=== PATIENT | male | born 1940 | race Caucasian/White ===

== ENCOUNTER 2019-07-23 06:00 | Observation (INO) | payer MEDICARE, OTHER ==
[2019-07-19 10:54] LABS: BASOPHILS # (AUTO) 0.1 (0.0-0.1); BASOPHILS % 0.9 % (0.0-1.0); EOSINOPHILS # (AUTO) 0.1 (0.0-0.4); HEMATOCRIT 41.2 % (38.2-49.6); HEMOGLOBIN 13.8 g/dL (14.0-18.0); LYMPHOCYTES % 17.6 % (18.0-39.1); MEAN CORPUSCULAR HEMOGLOBIN 32.5 pg (28-32); MEAN CORPUSCULAR HGB CONC 33.5 g/dL (31-35); MEAN CORPUSCULAR VOLUME 96.9 fL (81-99); MONOCYTES # (AUTO) 1.1 (0.2-0.8); MONOCYTES % 9.7 % (4.4-11.3); NEUTROPHILS # (AUTO) 8.2 (2.1-6.9); NEUTROPHILS % 70.4 % (38.7-80.0); PLATELET COUNT 256 x10e3/uL (140-360); RED BLOOD COUNT 4.25 x10e6/uL (4.3-5.7); RED CELL DISTRIBUTION WIDTH 12.1 % (11.7-14.4)
--- NOTE | 2019-07-19 11:15 | Diagnostic Imaging Report ---
EXAMINATION: CHEST 2 VIEWS INDICATION: Pre-operative COMPARISON: None FINDINGS: LINES/TUBES:None LUNGS:The lungs are well-inflated. No focal consolidation or pulmonary edema. PLEURA:No pleural effusion or pneumothorax. MEDIASTINUM:The cardiomediastinal silhouette appears normal in size and shape. BONES/SOFT TISSUES:No acute osseous injury. ABDOMEN:No free air under the diaphragm. Status post cholecystectomy. IMPRESSION: No focal pneumonia or pulmonary edema. Signed by: Anshul Esqueda MD on 07/19/2019 11:11 AM
[2019-07-20 08:11] LABS: CALCIUM 9.3 mg/dL (8.4-10.2); CREATININE, SERUM 1.27 mg/dL (0.72-1.25)
[~2019-07-23] VITALS: Ht 167.6 cm; Wt 105.7 kg
[~2019-07-23 06:00] MED LIST: ASPIR 8181 MG PO; BACLOFEN10 MG PO; BENAZEPRIL-HCT1 EAC2 PO; NAPROSYN500 MG PO; [UNRECOGNIZED DRUG - OTHER] TOP
--- OUTSIDE RECORDS SUMMARY | 2019-07-23 06:10 | XMS REPORT | Clinical Summary ---
Author Author [facility] Organization [facility] Address Unknown Phone Unavailable Care Team Providers Care Boat Engine Mechanic Name Role Phone Prasad Gonzalez MD PCP Allergies Comments Active Allergy Reactions Severity Noted Date Penicillins 10/02/2018 Medications End Date Status Medication Sig Dispensed Refills Start Date Active montelukast (SINGULAIR) Take 10 mg by 0 10 mg tablet mouth nightly. Active benazepril-hydrochlorothi Take 1 tablet 0 azide (LOTENSIN HCT) by mouth 20-25 mg per tablet daily. Active acetaZOLAMIDE (DIAMOX) TAKE 1 0 01 500 mg capsule CAPSULE BY 9 MOUTH DIRECTED TO BE TAKEN AFTER SURGERY AT 7AM Active PROLENSA 0.07 % INSTILL 1 1 ophthalmic solution DROP INTO 9 AFFECTED EYE ONCE DAILY DIRECTED Active moxifloxacin (VIGAMOX) INSTILL 1 1 01 0.5 % ophthalmic solution DROP INTO 9 AFFECTED EYE 4 TIMES DAILY DIRECTED (START 2 DAYS BEFORE SURGERY) Active prednisoLONE acetate INSTILL 1 0 (PRED FORTE) 1 % DROP INTO 9 ophthalmic suspension AFFECTED EYE 4 TIMES DAILY DIRECTED 05/10/2019 traMADoL (ULTRAM) 50 mg Take 1 tablet 12 tablet 0 tabletIndications: acute (50 mg total) 0 pain by mouth every 6 (six) hours as needed for moderate pain for up to 5 days .acute pain. Active Problems Problem Noted Date Nuclear sclerotic cataract of left eye 10/03/2018 Acute pancreatitis 10/07/2017 Encounters Care Team Description Date Type Specialty Mahesh Lazcano MD Arthritis of hip (Primary Dx); Pain of right hip joint 05/05/2019 Emergency Emergency Medicine Elpidio Serna MD PHACOEMULSIFICATION, CATARACT, WITH IOL IMPLANTATION 10/03/2018 Surgery General Surgery Jonathan Montalvo MD Su, Young, MD 10/03/2018 Anesthesia General Surgery Event Elpidio Serna MD Nuclear sclerotic cataract of left eye ( Primary Dx) 10/03/2018 Hospital General Surgery Encounter after 07/22/2018 Social History Date Tobacco Use Types Packs/Day Years Used Never Smoker Smokeless Tobacco: Never Used Drinks/Week oz/Week Comments Alcohol Use No Sex Assigned at Date Recorded Not on file Industry Job Start Date Occupation Not on file Not on file Not on file Travel End Travel History Travel Start No recent travel history available. Last Filed Vital Signs Reading Time Taken Comments Vital Sign 119/69 05/05/2019 6:47 AM CRIMINAL JUSTICE SOCIAL WORKER Blood Pressure 67 05/05/2019 6:47 AM CRIMINAL JUSTICE SOCIAL WORKER Pulse 36.7 C (98 F) 05/05/2019 6:47 AM CRIMINAL JUSTICE SOCIAL WORKER Temperature 18 05/05/2019 6:47 AM CRIMINAL JUSTICE SOCIAL WORKER Respiratory Rate 97% 05/05/2019 6:47 AM CRIMINAL JUSTICE SOCIAL WORKER Oxygen Saturation - - Inhaled Oxygen Concentration 95.3 kg (210 lb) 05/05/2019 4:30 AM CRIMINAL JUSTICE SOCIAL WORKER Weight 167.6 cm (5' 6") 05/05/2019 4:30 AM CRIMINAL JUSTICE SOCIAL WORKER Height 33.89 05/05/2019 4:30 AM CRIMINAL JUSTICE SOCIAL WORKER Body Mass Index Plan of Treatment Health Maintenance Due Date Last Done Comments SHINGLES VACCINES (#1) 01/01/1990 65+ PNEUMOCOCCAL VACCINE 01/01/2005 (1 of 2 - PCV13) INFLUENZA VACCINE 10/06/2019 Implants Device Identifier Shelf Expiration Date Model / Serial / L ot Implanted Type Area Manufactur er 05/05/2023 [id number] 190 / [id number] / [id number] Lens Ascrysof Aspheric Uv Absorbing Intraocula Left: Eye JENN 19.0.Od 13mmx6.0mm - [id number] - r Lens LA BORATORI [id number] Implant ES [employer] Implanted: Qty: 1 on 10/03/2018 by Elpidio Serna MD at [facility] Procedures Comments Procedure Name Priority Date/Time Associated Diag nosis XR HIP 2-3 VIEWS RIGHT STAT 05/05/2019 6:14 AM CRIMINAL JUSTICE SOCIAL WORKER PHACOEMULSIFICATION, 10/03/2018 Age-related nucl ear CATARACT, WITH IOL 7:13 AM CDT cataract of left e ye IMPLANTATION Special Needs SA60WF +19.00 after 07/22/2018 Results * XR Hip 2-3 View Right (05/05/2019 6:14 AM CRIMINAL JUSTICE SOCIAL WORKER) Specimen Narrative Performed At EXAMINATION: XR HIP 2-3 VIEWS RIGHT [facility] CLINICAL HISTORY: hip pain COMPARISON: None. FINDINGS: Mineralization is within normal limits. Hip joint spaces are narrowed bilaterally, with near prdi-sq-rref con tact, osteophytosis and sclerosis of the acetabular articular surfaces. There is mild remodeling of both femoral heads and acetabula, more so on the left. Fracture, subluxation and per iosteal reaction are not seen. IMPRESSION: Bilateral degenerative changes, greater on the left. [facility]-[id number] Procedure Note Hm Interface, Radiology Results Incoming - 05/05/2019 6:35 AM CRIMINAL JUSTICE SOCIAL WORKER EXAMINATION: XR HIP 2-3 VIEWS RIGHT CLINICAL HISTORY: hip pain COMPARISON: None. FINDINGS: Mineralization is within normal limits. Hip joint spaces are narrowed bilaterally, with near iibz-vy-xwyg contact, osteophytosis and sclerosis of the acetabular articular surfaces. There is mild remodeling of both femoral heads and acetabula, more so on the left. Fracture, subluxation and periosteal reaction are not seen. IMPRESSION: Bilateral degenerative changes, greater on the left. [facility]-[id number] Performing Organization Address City/State/Zipcode Ph one Number [facility] [address] [place] [address] after 07/22/2018 Insurance Type Payer Benefit Subscriber ID Effective Phone Address Plan / Dates Group HMO TEXANPLUS TEXANPLUS xxxxxxxxx 2017-P NYA roberto Advance Directives For more information, please contact: [phone] Patient Director Data Management Explanation Type Date Recorded Advance Directives, 05/16/2015 9:58 AM Living Will and Medical Power of Apprentice Jockey Advance Directives, 05/28/2015 2:14 PM Living Will and Medical Power of Apprentice Jockey Advance Directives, 09/08/2018 12:43 PM Living Will and Medical Power of Apprentice Jockey Advance Directives, 05/05/2019 6:37 AM Living Will and Medical Power of Apprentice Jockey Date Inactivated Comments Code Status Date Activated 10/09/2017 3:07 PM Full Code 10/07/2017 11:58 PM Code Status decision reached by: Patient
--- OUTSIDE RECORDS SUMMARY | 2019-07-23 06:10 | XMS REPORT ---
Author Author [facility] Organization [facility] Address [address] [place] [address] Phone Unavailable Care Team Providers Care Employee Service Officer Name Role Phone Carlos PERRIN, Octaviano Parham PCP BERE STAFFORD Attphys Unavailable Neno PERRIN, Master Aragon Attphys Kareem PERRIN, Oscar Magallanes Attphys Selvin PERRIN, Elpidio Castillo Attphys Haylee PERRIN, Reynold Attphys Payers Payer Name Policy Type Policy Number Effective Date Expiration Date S maykel TEXANPLUSTEXANPLUS [id number] xxxxxxxxx 2017 00:00:00 Juan J Flores Problems Condition Name Condition Details Condition Category Status Onset Date Resolution Date Last Treatment Date Treating Clinician Comments Source Nuclear sclerotic cataract of left eye Nuclear sclerotic cat aract of left eye Disease Active 2018-10-03 00:00:00 Juan J Flores Acute pancreatitis Acute pancreatitis Disease Active 2017-10-07 00:00:0 0 Juan J Flores Allergies, Adverse Reactions, Alerts Allergy Name Allergy Type Status Severity Reaction(s) Onset Date Inacti ve Date Treating Clinician Comments Source Penicillins Propensity to adverse reactions to drug Active 2018-10-02 00:00:00 Juan J draper Social History Social Habit Start Date Stop Date Quantity Comments Source Sex Assigned At Jessica ruelasvictor hugo Flores Alcohol intake 2019-05-05 00:00:00 2019-05-05 00:00:00 Current non-drinker of alcohol (finding) Juan J Flores Smoking Status Start Date Stop Date Source Never smoker Juan J draper Medications Ordered Medication Name Filled Medication Name Start Date Stop Da te Current Medication? Ordering Clinician Indication Dosage Frequency Signature (SIG) Comments Components Source traMADoL (ULTRAM) 50 mg tablet 2019-05-05 00:00:00 6 05:59:00 No [id number] 50mg Q6H Take 1 tablet (50 mg total) by mouth every 6 (six) hours as needed for moderate pain for up to 5 days .acute pain. Juan J Flores montelukast (SINGULAIR) 10 mg tablet 2018-10-03 13:06:27 Ye s 10mg QD Take 10 mg by mouth nightly. Juan J spencer benazepril-hydrochlorothiazide (LOTENSIN HCT) 20-25 mg per t ablet 2018-10-03 13:06:27 Yes 1{tbl} QD Take 1 tablet by mouth daily. Juan J Flores acetaZOLAMIDE (DIAMOX) 500 mg capsule 2018-09-29 00:00:00 Y es TAKE 1 CAPSULE BY MOUTH DIRECTED TO BE TAKEN AFTER SURGERY AT 7AM Juan J Flores PROLENSA 0.07 % ophthalmic solution 2018-09-29 00:00:00 Yes INSTILL 1 DROP INTO AFFECTED EYE ONCE DAILY DIRECTED Juan J Flores moxifloxacin (VIGAMOX) 0.5 % ophthalmic solution 2018-09-29 00:00:00 Yes INSTILL 1 DROP INTO AFFECTED EYE 4 TIMES DAILY DIRECTED (START 2 DAYS BEFORE SURGERY) Juan J Flores prednisoLONE acetate (PRED FORTE) 1 % ophthalmic suspension 2018-09-29 00:00:00 Yes INSTILL 1 DROP INTO AFFECTED EYE 4 TIMES DAILY DIRECTED Juan J Flores Vital Signs Vital Name Observation Time Observation Value Comments Source Systolic blood pressure 2019-05-05 12:47:00 119 mm[Hg] Juan J Flores Diastolic blood pressure 2019-05-05 12:47:00 69 mm[Hg] Juan J Flores Heart rate 2019-05-05 12:47:00 67 /min Juan J Flores Body temperature 2019-05-05 12:47:00 36.67 Johana Claire ton Mark Respiratory rate 2019-05-05 12:47:00 18 /min Claire Flores Oxygen saturation in Arterial blood by Pulse oximetry 12:47:00 97 /min Juan J Flores Body height 2019-05-05 10:30:00 167.6 cm Juan J Flores Body weight 2019-05-05 10:30:00 95.255 kg Juan J Flores BMI 2019-05-05 10:30:00 33.89 kg/m2 Juan J Flores Procedures Procedure Date / Time Performed Performing Clinician Sourc e XR HIP 2-3 VIEWS RIGHT 2019-05-05 12:14:41 Vinny Pierson PHACOEMULSIFICATION, CATARACT, WITH IOL IMPLANTATION 2018-09 12:13:00 Elpidio Serna Plan of Care Planned Activity Planned Date Details Comments Source Future Scheduled Test 2019-10-06 00:00:00 INFLUENZA VACCINE [code = INFLUENZA VACCINE] Juan J Flores Future Scheduled Test 2005-01-01 00:00:00 65+ PNEUMOCOCCAL V ACCINE (1 of 2 - PCV13) [code = 65+ PNEUMOCOCCAL VACCINE (1 of 2 - PCV13)] Juan J Flores Future Scheduled Test 1990-01-01 00:00:00 SHINGLES VACCINES (#1) [code = SHINGLES VACCINES (#1)] Juan J Flores Encounters Start Date/Time End Date/Time Encounter Type Admission Type [facility] Care Department Encounter ID Source 2019-05-05 00:00:00 2019-05-05 00:00:00 Emergency JACINTA AUGUSTINE [facility] [id number] Juan J Flores Results Test Description Test Time Test Comments Results Result Comments Source CHEST 2 VIEWS 2019-07-19 11:11:00 [place] [address] Patient Name: JEREMIAH GRAVES MR #: [id number] : 1940 Age/Sex: 79/M Req #: [id number] Adm Physician: Ordered by: BERE STAFFORD MD Report #: [id number] Location: OR Room/Bed: Procedure: [id number] DX/CHEST 2 VIEWS Exam Date: Exam Time: REPORT STATUS: Signed EXAMINATION: CHEST 2 VIEWS INDICATION: Pre- operative COMPARISON: None FINDINGS: LINES/TUBES:None LUNGS:The lungs are well-inflated. No focal consolidation or pulmonary edema. PLEURA:No pleural effusion or pneumothorax. MEDIASTINUM:The cardiomedi astinal silhouette appears normal in size and shape. BONES/SOFT TISSUES:No acute osseous injury. ABDOMEN:No free air under the diaphragm. Status post cholecystectomy. IMPRESSION: No focal pneumonia or pulmonary edema. Signed by: Mónica Ross MD on 07/19/2019 11:11 AM Dictated By: MÓNICA ROSS MD 1111 Transcribed By: LEORA on 07/19/19 1111 COPY TO: BERE STAFFORD MD XR Hip 2-3 View Right 2019-05-05 12:32:38 [facility] erface, Radiology Results 05/05/2019 6:35 AM CSTEXAMINATION: XR HIP 2-3 VIEWS RIGHTCLINICAL HISTORY: hip painCOMPARISON: None.FINDINGS:Mineralization is within normal limits. Hip joint spaces are narrowed bilaterally, with near ikef-lj-bkix contact, osteophytosis and sclerosis of the acetabular articular surfaces. There is mild remodeling of both femoral heads and acetabula, more so on the left. Fracture, subluxation and periosteal reaction are not seen.IMPRESSION:Bilateral degenerative changes, greater on the left.[facility]-[id number] Juan J Flores
[2019-07-23] MEDS ORDERED: VANCOMYCIN 1GM/NS 250 ML 250 ML ONE (06:58)
[2019-07-23] MEDS ORDERED: CELECOXIB 200 MG CAP ONE (07:18)
[2019-07-23] MEDS ORDERED: DEXAMETHASONE SOD PHOS 10 MG/1 ML VIAL ONE (07:18)
[2019-07-23] MEDS ORDERED: GABAPENTIN 300 MG CAP ONE (07:19)
[2019-07-23] MEDS ORDERED: ROPIVACAINE 246.25 MG, EPINEPHRINE HCL 1:1000 1ML 0.5 MG, CLONIDINE HCL 0.08 MG, KETORO... INJ ONE ×5 (07:30)
[2019-07-23] MEDS ORDERED: VANCOMYCIN HCL 1,000 MG ONE (10:19)
[2019-07-23] MEDS ORDERED: TRANEXAMIC ACID 1,000 MG/10 ML ML ONE (10:20)
[2019-07-23] MEDS ORDERED: SODIUM CHLORIDE 0.9% 500ML 500 ML ONE (10:20)
[2019-07-23] MEDS ORDERED: BACITRACIN 50,000 UNIT VIAL ONE (10:20)
[2019-07-23] MEDS ORDERED: ZOLPIDEM TARTRATE 5 MG TAB PO PRN (12:15)
[2019-07-23] MEDS ORDERED: DIPHENHYDRAMINE HCL INJ 50 MG/ML VIAL IV PRN (12:15)
[2019-07-23] MEDS ORDERED: ACETAMINOPHEN 650 MG SUPP PR PRN (12:15)
[2019-07-23] MEDS ORDERED: DOCUSATE SODIUM 100 MG CAP PO PRN (12:15)
[2019-07-23] MEDS ORDERED: ONDANSETRON HCL INJ 2MG/ML 2ML 2 MG/ML VIAL IV PRN (12:15)
[2019-07-23] MEDS ORDERED: HYDROCODONE/APAP 5MG-325MG TAB PO PRN (12:15)
[2019-07-23] MEDS ORDERED: KETOROLAC TROMETHAMINE 30 MG/ML VIAL IV PRN (12:15)
--- OUTSIDE RECORDS SUMMARY | 2019-07-23 13:06 | XMS REPORT ---
Author Author [facility] Organization [facility] Address [address] [place] [address] Phone Unavailable Care Team Providers Care Oil And Gas Exploration Technician Name Role Phone Carlos PERRIN, Octaviano Parham PCP BERE STAFFORD Attphys Unavailable Neno PERRIN, Master Aragon Attphys Kareem PERRIN, Oscar Magallanes Attphys Selvin PERRIN, Elpidio Castlilo Attphys Haylee PERRIN, Reynold Attphys Payers Payer [...] mg tablet 2019-05-05 00:00:00 6 05:59:00 [place] [id number] 50mg Q6H Take 1 tablet (50 mg [...] End Date/Time Encounter Type Admission Type Att[email or web address] Care Department Encounter ID Source 2019-05-05 00:00:00 2019-05-05 00:00:00 Emergency JACINTA [facility]UGUSTINE [facility] [id number] Juan J Flores Results Test Description Test Time Test Comments Results Result Comments Source CHEST 2 VIEWS 2019-07-19 11:11:00 [place] [address] Patient Name: JEREMIAH GRAVES MR #: [id number] : 1940 Age/Sex: 79/M Req #: [id number] Adm Physician: Ordered by: BERE STAFFORD MD Report #: [id number] Location: OR Room/Bed: Procedure: [id number] DX/CHEST 2 VIEWS Exam Date: Exam Time: [...] XR Hip 2-3 View Right 2019-05-05 12:32:38 [facility] erface, Radiology Results 05/05/2019 6:35 AM CSTEXAMINATION: XR HIP 2-3 VIEWS RIGHTCLINICAL HISTORY: hip painCOMPARISON: None.FINDINGS:Mineralization is within normal limits. Hip joint spaces are narrowed bilaterally, with near tzvy-gx-lsiv contact, osteophytosis and sclerosis of the acetabular articular surfaces. There is mild remodeling of both femoral heads and acetabula, more so on the left. Fracture, subluxation and periosteal reaction are not seen.IMPRESSION:Bilateral degenerative changes, greater on the left.[facility]-[id number] uJan J Flores
--- OUTSIDE RECORDS SUMMARY | 2019-07-23 13:06 | XMS REPORT | Clinical Summary ---
Author Author [facility] Organization [facility] Address Unknown Phone Unavailable Care Team Providers Care Carbon Brusher Assembler Name Role Phone Prasad Gonzalez MD PCP [...] Comments Vital Sign 119/69 05/05/2019 6:47 AM PURCHASING ENGINEER Blood Pressure 67 05/05/2019 6:47 AM PURCHASING ENGINEER Pulse 36.7 C (98 F) 05/05/2019 6:47 AM PURCHASING ENGINEER Temperature 18 05/05/2019 6:47 AM PURCHASING ENGINEER Respiratory Rate 97% 05/05/2019 6:47 AM PURCHASING ENGINEER Oxygen Saturation - - Inhaled Oxygen Concentration 95.3 kg (210 lb) 05/05/2019 4:30 AM PURCHASING ENGINEER Weight 167.6 cm (5' 6") 05/05/2019 4:30 AM PURCHASING ENGINEER Height 33.89 05/05/2019 4:30 AM PURCHASING ENGINEER Body Mass Index Plan of Treatment Health Maintenance Due Date Last Done Comments SHINGLES VACCINES (#1) 01/01/1990 65+ PNEUMOCOCCAL VACCINE 01/01/2005 (1 of 2 - PCV13) INFLUENZA VACCINE 10/06/2019 Implants Device Identifier Shelf Expiration Date Model / Serial / L ot Implanted Type Area Manufactur er 05/05/2023 SA60WF 190 / [id number] / [id number] Lens Ascrysof Aspheric Uv Absorbing Intraocula Left: Eye JENN 19.0.Od 13mmx6.0mm - [id number] - r Lens [employer] BORATORI [id number] Implant ES INC Implanted: Qty: 1 on 10/03/2018 by Elpidio Serna MD at [facility] Procedures Comments Procedure Name Priority Date/Time Associated Diag nosis XR HIP 2-3 VIEWS RIGHT STAT 05/05/2019 6:14 AM PURCHASING ENGINEER PHACOEMULSIFICATION, 10/03/2018 Age-related nucl ear CATARACT, WITH IOL 7:13 AM CDT cataract of left e ye IMPLANTATION Special Needs SA60WF +19.00 after 07/22/2018 Results * XR Hip 2-3 View Right (05/05/2019 6:14 AM PURCHASING ENGINEER) Specimen Narrative Performed At EXAMINATION: XR HIP 2-3 VIEWS RIGHT [facility] CLINICAL HISTORY: hip pain COMPARISON: None. FINDINGS: Mineralization is within normal limits. Hip joint spaces are narrowed bilaterally, with near nxda-db-sseb con tact, osteophytosis and sclerosis of the acetabular articular surfaces. There is mild remodeling of both femoral heads and acetabula, more so on the left. Fracture, subluxation and per iosteal reaction are not seen. IMPRESSION: Bilateral degenerative changes, greater on the left. [facility]-[id number] Procedure Note Hm Interface, Radiology Results Incoming - 05/05/2019 6:35 AM PURCHASING ENGINEER EXAMINATION: XR HIP 2-3 VIEWS RIGHT CLINICAL HISTORY: hip pain COMPARISON: None. FINDINGS: Mineralization is within normal limits. Hip joint spaces are narrowed bilaterally, with near mynw-hx-idpi contact, osteophytosis and sclerosis of the acetabular articular surfaces. There is mild remodeling of both femoral heads and acetabula, more so on the left. Fracture, subluxation and periosteal reaction are not seen. IMPRESSION: Bilateral degenerative changes, greater on the left. [facility]-[id number] Performing Organization Address City/State/Zipcode Ph one Number [facility] [address] [place] [address] after 07/22/2018 Insurance Type Payer Benefit Subscriber ID Effective Phone Address Plan / Dates Group HMO TEXANPLUS TEXANPLUS xxxxxxxxx 2017-P [employer]A roberto Advance Directives For more information, please contact: [phone] Patient Welder Fitter Explanation Type Date Recorded Advance Directives, 05/16/2015 9:58 AM Living Will and Medical Power of Burning Machine Operator Advance Directives, 05/28/2015 2:14 PM Living Will and Medical Power of Burning Machine Operator Advance Directives, 09/08/2018 12:43 PM Living Will and Medical Power of Burning Machine Operator Advance Directives, 05/05/2019 6:37 AM Living Will and Medical Power of Burning Machine Operator Date Inactivated Comments Code Status Date Activated 10/09/2017 3:07 PM Full Code 10/07/2017 11:58 PM Code Status decision reached by: Patient
--- NOTE | 2019-07-23 13:24 | NUR ---
ARRIVED VIA STRETCHER FROM PACU, AA&OX3, RA, DTV, R HIP DRESSING CDI, PT STATES RLE "NUMB AND CANT FEEL ANYTHING FROM THIGH DOWN", EDUCATED PT THAT HE HAD A BLOCK DURING SURGERY AND FEELING WILL COME BACK, PT VERBALIZED UNDERSTANDING, ORIENTED TO ROOM AND CALL LIGHT SYSTEM, CALL LIGHT WITHIN REACH
[2019-07-23 13:34] VITALS: BP 101/57
--- NOTE | 2019-07-23 13:36 | Diagnostic Imaging Report ---
Pelvis, 1 view. History: Post op. 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 Overlying post-surgical air and skin korey are present. Remaining bones are unremarkable. 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 IMPRESSION: Status post right hip replacement in anatomic position. Left hip DJD noted. Signed by: Juan Santoyo on 07/23/2019 1:32 PM
[2019-07-23] MEDS: SODIUM CHLORIDE 0.9% 1000ML 1,000 ML IV SCH ×2 (13:45→23:45)
--- NOTE | 2019-07-23 14:06 | Operative Report ---
DATE OF PROCEDURE: 07/23/2019 SURGEON: Adalberto Louis MD TESTING MACHINE OPERATOR: Rosalio Prince, certified PA. PREOPERATIVE DIAGNOSIS: Osteoarthritis, right hip. POSTOPERATIVE DIAGNOSIS: Osteoarthritis, right hip. PROCEDURE: Right total hip arthroplasty. INDICATIONS: The patient is a 79-year-old gentleman with advanced osteoarthritis of his right hip. He has failed conservative management and would like to proceed with a right total hip replacement. The risks and benefits have been discussed. The recovery and implants have been explained. All of his questions have been answered. He states he understands and wishes to proceed. PROCEDURE IN DETAIL: The patient was brought to the operating room and given a spinal anesthetic. He received prophylactic antibiotics and tranexamic acid in the holding area. He was positioned in the left lateral decubitus position. His right hip was prepped and draped in a sterile manner. A preoperative time-out was performed. A posterior approach was made to the right hip. Hemostasis was obtained with electrocautery. A deep self-retaining Charnley retractor was placed. Care was taken to avoid injury to the sciatic nerve. The posterior capsule was exposed and released. Further hemostasis was obtained with electrocautery. The hip was dislocated. Complete loss of articular cartilage was noted. An oscillating saw was used to resect the femoral head. Acetabular retractors were then carefully placed. A long-handle knife was used to remove labral remnants. The true floor of the acetabulum was established with a 46 mm reamer. The socket was then sequentially reamed up to 55 mm. This accomplished bleeding hemispherical cancellous bone. A Tracey Biomet 56 mm outer diameter OsseoTi socket was then impacted into place. Good fixation was felt to be obtained. Fixation was augmented with a single 25 mm cancellous screw placed into the ilium. The hip was thoroughly irrigated with a shower tip pulsatile lavage on a number of occasions. A portion of a premixed pericapsular CHIARA injection was placed around the socket. A highly cross-linked polyethylene liner with a 36 mm inner diameter was then seated into place. Care was taken to make sure that there was no soft tissue interposition. The socket was packed with a moistly soaked lap sponge and attention was directed towards the proximal femur. A box cutting osteotome and taper pin reamer were used to establish entry to the femoral canal. The Taperloc broaches were then impacted. A trial reduction was performed with a size 11 stem. This was felt to be too tight. I returned to a size 10 stem. Repeat reduction was improved with a standard 36 mm head. The trial implants were removed. The hip was further irrigated with a shower tip pulsatile lavage. The implant seated with a standard neck and 36 mm ceramic head were seated onto the stem. A final reduction was performed. The hip was put through a full arc of motion and noted to have excellent stability. The posterior capsule and short external rotators were repaired with #2 Ethibond. A 500 mg of vancomycin powder was sprinkled into the wound. The remainder of the injection was placed around the soft tissue. The fascia was closed with #2 Ethibond. The skin was closed with subcuticular Vicryl and korey. A sterile Aquacel bandage was applied. The patient was returned to the supine position and transported to the recovery room in stable condition. Estimated blood loss was 50 mL and all needle and sponge counts were correct. Adalberto Louis MD DR/ELIN /[id number]
[2019-07-23 14:13] VITALS: BP 101/57
[2019-07-23 14:21] VITALS: BP 101/57
[2019-07-23 16:10] VITALS: BP 124/67
[2019-07-23] MEDS: ASPIRIN 325 MG TAB PO SCH (16:22)
[2019-07-23] MEDS: CELECOXIB 200 MG CAP PO SCH (16:23)
--- NOTE | 2019-07-23 16:23 | NUR ---
PHYSICAL THERAPIST IN ROOM WORKING WITH PT,
--- NOTE | 2019-07-23 16:25 | NUR ---
PT STATES RLE "STARTING TO HAVE FEELING "
[2019-07-23] MEDS ORDERED: ONDANSETRON HCL INJ 2MG/ML 2ML 2 MG/ML VIAL ONE (17:05)
[2019-07-23] MEDS ORDERED: EPHEDRINE SULFATE INJ 50 MG/ML VIAL ONE (17:05)
[2019-07-23] MEDS ORDERED: PROPOFOL IV EMULSION 10 MG/ML 20 ML VIAL ONE (17:05)
[2019-07-23] MEDS ORDERED: LIDOCAINE HCL 2% LOCAL INJ 5 ML SDV VIAL INJ ONE (17:05)
[2019-07-23] MEDS ORDERED: LABETALOL HCL 5 MG/ML 20ML VIAL ONE (17:05)
--- NOTE | 2019-07-23 18:34 | NUR ---
TOLERATING PO INTAKE, DENIES PAIN AT THIS TIME, NO CHANGE IN CONDITION Addendum: 07/23/19 at 1838 by Ankita Wilson RN DRESSING CDI TO RIGHT HIP
[2019-07-23] MEDS ORDERED: MIDAZOLAM HCL 2 MG/2 ML VIAL ONE (18:57)
[2019-07-23] MEDS ORDERED: FENTANYL CITRATE/PF 100MCG/2 ML INJ ONE (18:57)
--- NOTE | 2019-07-23 19:00 | NUR ---
RECEIVED PATIENT IN BEDSIDE SHIFT REPORT. PATIENT STARTING TO HAVE PAIN IN R HIP, STATED HE WILL INFORM STAFF WHEN HE WANTS PAIN MEDICINE. IV TO R HAND 20G ASYMPTOMATIC, INTACT, AND PATENT. HIP ABDUCTOR PILLOW IN PLACE. PATIENT VERBALIZED POSTERIOR HIP PRECAUTIONS. NO S&S OF DISTRESS NOTED. BED LOCKED IN LOWEST POSITION, SIDE RAILS UPX2, CALL LIGHT IN REACH.
[2019-07-23 20:00] VITALS: BP 109/63
[2019-07-23 21:24] VITALS: BP 109/63
[2019-07-23] MEDS: HYDROCODONE/APAP 7.5MG-325MG 1 EA TAB PO PRN (22:45)
[2019-07-23] MEDS: VANCOMYCIN 1GM/NS 250 ML 250 ML IV SCH (22:45)
[2019-07-24] VITALS: BP 108/66
[2019-07-24 04:00] VITALS: BP 109/56
[2019-07-24 05:56] LABS: HEMOGLOBIN 11.9 g/dL (14.0-18.0)
--- NOTE | 2019-07-24 07:06 | NUR ---
BEDSIDE SHIFT REPORT RECEIVED FROM PM NURSE. PT AWAKE, ALERT, SITTING UP IN BED, NO SIGNS OF DISTRESS. PT C/O PAIN TO LEFT HIP AND LOWER BACK, BUT REPORTS NO PAIN TO RIGHT HIP FROM SURGERY. WILL MEDICATE AND CONTINUE TO MONITOR.
[2019-07-24 07:53] VITALS: BP 109/56
[2019-07-24] MEDS: ASPIRIN 325 MG TAB PO SCH (07:56)
[2019-07-24] MEDS: CELECOXIB 200 MG CAP PO SCH (07:56)
[2019-07-24] MEDS: HYDROCODONE/APAP 7.5MG-325MG 1 EA TAB PO PRN (07:57)
[2019-07-24 08:05] VITALS: BP 117/56
[2019-07-24] MEDS ORDERED: BACLOFEN 10 MG TAB PO PRN (08:45)
--- NOTE | 2019-07-24 08:59 | Consultation ---
DATE OF CONSULTATION: REASON FOR CONSULTATION: The patient is status post right hip replacement. PRIMARY CARE PHYSICIAN: Dr. Victoriano Gonzalez MD HISTORY OF PRESENT ILLNESS: The patient is a 79 years male with multiple chronic medical problems including hypertension, osteoarthritis. The patient is now status post right hip replacement. He is doing well. He is stable. Blood pressure remains stable. No chest pain or shortness of breath. The patient is getting physical therapy. PAST MEDICAL HISTORY: Bilateral hip osteoarthritis and hypertension. PAST SURGICAL HISTORY: Total right hip replacement now and cholecystectomy. SOCIAL HISTORY: The patient does not smoke or use alcohol, no regular drugs. ALLERGIES: PENICILLIN. HOME MEDICATIONS: List reviewed. REVIEW OF SYSTEMS: Right hip pain appropriate. Ambulatory. No chest pain or shortness of breath. No abdominal pain. No focal deficit neurologically. PHYSICAL EXAMINATION: VITAL SIGNS: Temperature is 97, blood pressure 117/56, pulse rate 83, respirations 18. GENERAL: The patient is not in acute distress. HEENT: Normocephalic, atraumatic and anicteric. NECK: Supple grossly. PULMONARY: Clear. CARDIOVASCULAR: Regular rate and rhythm. ABDOMEN: Soft. EXTREMITIES: Status post right hip replacement NEUROLOGIC: No focal deficit. LABORATORY DATA: Sodium is 141, potassium 4, chloride 106, bicarb 24, BUN 20, creatinine 1.3, glucose 207. WBC 11.6, hemoglobin 11.9, hematocrit 35, platelets 256,000. IMPRESSION: 1. Status post right hip replacement. 2. Hyperglycemia. 3. Hypertension. PLAN: Glycohemoglobin A1c check up. Continue with current medication, home medication. PT/OT. Postoperative care. Kirit Lainez MD JT/MODL /[id number]
[2019-07-24] MEDS ORDERED: [UNRECOGNIZED DRUG - OTHER] TOP SCH (09:00)
--- NOTE | 2019-07-24 09:12 | NUR ---
Called [facility] [phone] and spoke to Pili. Informed of discharge for today. States they are ready to see pt. She will have pin drafter operator put pt down to be seen. SIMON spoke with Maral at [facility] States pt can bring the walker he picked up and exchange for one with wheels. CM informed pt but he said his daughter went and got him one from [facility] already. Pt has also picked up his BSC prior to surgery. Home health information printed and given to pt. Pt states that [facility] has already contacted him.
[2019-07-24] MEDS ORDERED: [UNRECOGNIZED DRUG - OTHER] TOP PRN (10:00)
[2019-07-24] MEDS ORDERED: BENAZEPRIL HCL 10 MG TAB PO SCH (10:00)
[2019-07-24] MEDS ORDERED: ONDANSETRON HCL 4 MG ORAL DISINTEGRATING TAB PO PRN (10:00)
[2019-07-24] MEDS ORDERED: HYDROCHLOROTHIAZIDE 25 MG TAB PO SCH (10:00)
[2019-07-24] MEDS: VANCOMYCIN 1GM/NS 250 ML 250 ML IV SCH ×2 (10:04→10:30)
--- NOTE | 2019-07-24 10:23 | NUR ---
NOTED IV BECAME DISLODGED DURING THERAPY; DISCONTINUED IV TO RIGHT HAND, STARTED NEW IV TO LEFT HAND.
[2019-07-24 12:00] VITALS: BP 124/63
[2019-07-24] MEDS ORDERED: ACETAMINOPHEN 1000 MG/100 ML IV PRN (12:15)
== END 2019-07-24 13:28 | disposition home or self-care (01) ==
LOC: OR 06:00 → PACU V 12:10 → MED/SURG 13:23
PROVIDERS: ADMIT Specialist; ATTEND Specialist
DX: M16.11 Unilateral primary osteoarthritis, right hip (principal); I10 Essential (primary) hypertension; Z90.49 Acquired absence of other specified parts of digestive tract; Z88.0 Allergy status to penicillin; R73.9 Hyperglycemia, unspecified; Z11.59 Encounter for screening for other viral diseases; Z01.818 Encounter for other preprocedural examination
CPT/HCPCS: 27130; 36415 ×3; 71046; 72170; 80048; 83036; 85014; 85018; 85025; 86850; 86900; 86920; 87635; 96360; 97110 ×2; 97116 ×2; 97139; 97161; 97530 ×2; G0378 ×2; J0171; J1100; J1885 ×2; J2001; J2250; J2405; J2704; J2795; J3010; J3370 ×3; J3490; J7030; J7040

== ENCOUNTER 2019-11-26 07:14 | Observation (INO) | payer MEDICARE, OTHER ==
[2019-11-22 11:02] LABS: BASOPHILS # (AUTO) 0.1 (0.0-0.1); BASOPHILS % 1.1 % (0.0-1.0); EOSINOPHILS # (AUTO) 0.2 (0.0-0.4); EOSINOPHILS % 1.5 % (0.0-6.0); HEMATOCRIT 41.9 % (38.2-49.6); HEMOGLOBIN 14.2 g/dL (14.0-18.0); LYMPHOCYTES # (AUTO) 2.6 (1.0-3.2); LYMPHOCYTES % 21.7 % (18.0-39.1); MEAN CORPUSCULAR HEMOGLOBIN 31.7 pg (28-32); MEAN CORPUSCULAR HGB CONC 33.9 g/dL (31-35); MEAN CORPUSCULAR VOLUME 93.5 fL (81-99); MONOCYTES # (AUTO) 1.1 (0.2-0.8); MONOCYTES % 9.6 % (4.4-11.3); NEUTROPHILS # (AUTO) 7.8 (2.1-6.9); NEUTROPHILS % 65.7 % (38.7-80.0); PLATELET COUNT 265 x10e3/uL (140-360); RED BLOOD COUNT 4.48 x10e6/uL (4.3-5.7); RED CELL DISTRIBUTION WIDTH 12.2 % (11.7-14.4)
[2019-11-22 11:17] LABS: ANION GAP 15.9 mmol/L (8-16); CALCIUM 9.3 mg/dL (8.4-10.2); CREATININE, SERUM 1.22 mg/dL (0.72-1.25); POTASSIUM 3.9 mmol/L (3.5-5.1)
[~2019-11-26] VITALS: Ht 167.6 cm; Wt 105.2 kg
[~2019-11-26 07:14] MED LIST changes: +BENAZEPRIL-HCT1 EAC3 PO; +VOLTAREN100 GM TOP
[2019-11-26] MEDS ORDERED: ROPIVACAINE 246.25 MG, EPINEPHRINE HCL 1:1000 1ML 0.5 MG, CLONIDINE HCL 0.08 MG, KETORO... INJ ONE ×5 (08:00)
[2019-11-26] MEDS ORDERED: CELECOXIB 200 MG CAP ONE (08:17)
[2019-11-26] MEDS ORDERED: GABAPENTIN 300 MG CAP ONE (08:17)
[2019-11-26] MEDS ORDERED: DEXAMETHASONE SOD PHOS 10 MG/1 ML VIAL ONE (08:17)
[2019-11-26] MEDS ORDERED: CEFAZOLIN SOD 1 GM/NS 50ML 100 ML IV ONE (08:17)
[2019-11-26] MEDS ORDERED: TRANEXAMIC ACID 1,000 MG/10 ML ML ONE (09:40)
[2019-11-26] MEDS ORDERED: VANCOMYCIN HCL 500 MG ONE ×2 (09:40→09:54)
[2019-11-26] MEDS ORDERED: SODIUM CHLORIDE 0.9% 500ML 500 ML ONE (09:41)
[2019-11-26] MEDS ORDERED: BUPIVACAINE 7.5MG/ML /DEXTROSE 82.5MG/ML 2 ML AMP INJ ONE (09:56)
[2019-11-26] MEDS ORDERED: CLINDAMYCIN PHOS 900MG/ 50ML 50 ML IV ONE (10:28)
[2019-11-26] MEDS ORDERED: DIPHENHYDRAMINE HCL INJ 50 MG/ML VIAL IV PRN (11:45)
[2019-11-26] MEDS ORDERED: ONDANSETRON HCL INJ 2MG/ML 2ML 2 MG/ML VIAL IV PRN (11:45)
[2019-11-26] MEDS ORDERED: HYDROCODONE/APAP 5MG-325MG TAB PO PRN (11:45)
[2019-11-26] MEDS ORDERED: ACETAMINOPHEN 650 MG SUPP PR PRN (11:45)
[2019-11-26] MEDS ORDERED: DOCUSATE SODIUM 100 MG CAP PO PRN (11:45)
[2019-11-26] MEDS: SODIUM CHLORIDE 0.9% 1000ML 1,000 ML IV SCH ×2 (11:45→20:33)
--- NOTE | 2019-11-26 12:05 | Diagnostic Imaging Report ---
Radiograph of the pelvis - HISTORY: Pain. Postop left hip surgery COMPARISON: None available. FINDINGS: Bones: No acute displaced fracture. Osseous alignment is within normal limits. Joints: Patient status post left and right hip replacement with associated postsurgical change. The surgical hardware is intact without evidence of failure or loosening. Soft tissues: The soft tissues appear unremarkable. IMPRESSION: Patient status post left and right hip replacement with associated postsurgical change. The surgical hardware is intact without evidence of failure or loosening. Signed by: Dr. Neil Bowers M.D. on 11/26/2019 12:02 PM
[2019-11-26] MEDS ORDERED: PROPOFOL IV EMULSION 10 MG/ML 20 ML VIAL ONE (12:42)
[2019-11-26] MEDS ORDERED: PHENYLEPHRINE HCL 1% 10 MG/ML VIAL ONE (12:42)
[2019-11-26] MEDS ORDERED: EPHEDRINE SULFATE INJ 50 MG/ML VIAL ONE (12:42)
[2019-11-26] MEDS ORDERED: LIDOCAINE HCL 2% LOCAL INJ 5 ML SDV VIAL INJ ONE (12:42)
[2019-11-26] MEDS ORDERED: ONDANSETRON HCL INJ 2MG/ML 2ML 2 MG/ML VIAL ONE (12:42)
[2019-11-26] MEDS ORDERED: MIDAZOLAM HCL 2 MG/2 ML VIAL ONE (12:58)
[2019-11-26] MEDS ORDERED: FENTANYL CITRATE/PF 100MCG/2 ML INJ ONE ×2 (12:58→14:55)
[2019-11-26 15:53] VITALS: BP 120/69
[2019-11-26 16:01] VITALS: BP 120/69
[2019-11-26 16:10] VITALS: BP 120/69
[2019-11-26] MEDS ORDERED: ACETAMINOPHEN 1000 MG/100 ML IV PRN (17:00)
--- NOTE | 2019-11-26 17:39 | Operative Report ---
DATE OF PROCEDURE: 11/26/2019 SURGEON: Adalberto Louis MD GAS BURNER OPERATOR: Rosalio Prince, certified PA. PREOPERATIVE DIAGNOSIS: Osteoarthritis, left hip. POSTOPERATIVE DIAGNOSIS: Osteoarthritis, left hip. PROCEDURE: Left total hip arthroplasty. INDICATIONS: The patient is a 79-year-old gentleman, who remains quite active. He has advanced osteoarthritis of his left hip. He is status post a right total hip replacement and would now like to proceed with a left total hip replacement. The risks and benefits of the procedure have been explained. All of his questions have been answered. He states he understands and is ready to proceed. PROCEDURE IN DETAIL: The patient was brought to the operating room and given a spinal anesthetic. He received prophylactic antibiotics and tranexamic acid in the holding area. He was positioned in the right lateral decubitus position. His left hip was prepped and draped in a sterile manner. A preoperative time-out was performed. A posterior approach was made to the left hip. Hemostasis was obtained with electrocautery. A Charnley self-retaining retractor was placed. Care was taken to avoid injury to the sciatic nerve. The posterior capsule was carefully exposed. A portion of the short external rotators and the posterior capsule were released. The hip was dislocated and an oscillating saw was used to resect the femoral head. Complete loss of articular cartilage of weightbearing surface of the femoral head was noted. Acetabular retractors were placed. A hypertrophic labral remnant was excised. The true floor of the acetabulum was then established with a 48 mm reamer. The socket was then sequentially reamed up to 55 mm. This accomplished bleeding hemispherical cancellous bone. The hip was thoroughly irrigated on several occasions with a shower tip pulsatile lavage. A Tracey/Biomet 56 mm outer diameter OsseoTi socket was then impacted into place. Fixation was augmented with a single 25 mm cancellous screw placed into the ilium. A highly cross-linked polyethylene liner was then seated into place. Care was taken to make sure that there was no evidence of soft tissue interposition. The socket was packed with a moistly soaked lap sponge and attention was directed towards the proximal femur. A box cutting osteotome and taper pin reamer were used to establish entry to the femoral canal. The Tracey/Biomet Taperloc broaches were impacted. A size 10 stem had good canal fill and rotational stability for trial reduction. A standard 36 mm head was felt to provide appropriate soft tissue balancing, holiness of limb length, and stability through a full arc of motion. The trial implant was then removed. The hip was thoroughly irrigated. The Taperloc stem was then impacted into place. A standard 36 mm ceramic head was seated onto the stem once it was clean and dry. A final reduction of the hip was performed. A 100 mL premixed pericapsular CHIARA injection was placed into the surrounding soft tissue. The posterior capsule was repaired with #2 Ethibond. A 500 mg of vancomycin powder was sprinkled into the wound. The fascia was closed with #2 Ethibond. The skin was closed with subcuticular Vicryl and korey. A sterile Aquacel bandage was applied. The patient was extubated and transported to the recovery room in stable condition. Estimated blood loss was 150 mL. At the end of the procedure, all needle and sponge counts were correct. Adalberto Louis MD DR/ELIN /[id number]
[2019-11-26] MEDS ORDERED: SODIUM CHLORIDE 0.9% 250ML 250 ML ONE (17:44)
[2019-11-26] MEDS: VANCOMYCIN 1GM/NS 250 ML 250 ML IV SCH (17:50)
[2019-11-26] MEDS: CELECOXIB 100 MG CAP PO SCH (17:50)
[2019-11-26] MEDS: ASPIRIN 325 MG TAB PO SCH (17:50)
[2019-11-26] MEDS: KETOROLAC TROMETHAMINE 30 MG/ML VIAL IV PRN (19:26)
[2019-11-26 20:00] VITALS: BP 100/56
[2019-11-26 21:00] VITALS: BP 100/56
[2019-11-26] MEDS ORDERED: ZOLPIDEM TARTRATE 5 MG TAB PO PRN (21:00)
[2019-11-26] MEDS: HYDROCODONE/APAP 7.5MG-325MG 1 EA TAB PO PRN (21:42)
[2019-11-26 21:58] VITALS: BP 100/56
[2019-11-27] VITALS: BP 109/61
[2019-11-27] MEDS: KETOROLAC TROMETHAMINE 30 MG/ML VIAL IV PRN (02:01)
[2019-11-27 04:00] VITALS: BP 114/66
[2019-11-27 04:50] LABS: HEMATOCRIT 35.7 % (38.2-49.6); HEMOGLOBIN 12.2 g/dL (14.0-18.0)
[2019-11-27] MEDS: VANCOMYCIN 1GM/NS 250 ML 250 ML IV SCH (05:17)
--- NOTE | 2019-11-27 07:00 | NUR ---
RECEIVED PATIENT AWAKE RESTING IN BED. NO S/S OF DISTRESS. BED LOW, WHEELS LOCKED, SIDE RAILS X2. CALL LIGHT IN REACH WILL CONTINUE TO MONITOR PATIENT.
[2019-11-27] MEDS: SODIUM CHLORIDE 0.9% 1000ML 1,000 ML IV SCH (07:45)
[2019-11-27 07:56] VITALS: BP 114/59
[2019-11-27 07:57] VITALS: BP 114/59
[2019-11-27] MEDS: ASPIRIN 325 MG TAB PO SCH (08:16)
[2019-11-27] MEDS: CELECOXIB 100 MG CAP PO SCH (08:16)
[2019-11-27] MEDS ORDERED: KETOROLAC TROMETHAMINE 30 MG/ML VIAL IV PRN (08:30)
[2019-11-27] MEDS ORDERED: BACLOFEN 10 MG TAB PO PRN (08:30)
[2019-11-27] MEDS: HYDROCODONE/APAP 7.5MG-325MG 1 EA TAB PO PRN (08:32)
--- NOTE | 2019-11-27 11:00 | NUR ---
IV DISCONTINUED CATHETER TIP INTACT AND PRESSURE DRESSING APPLIED.
--- NOTE | 2019-11-27 11:17 | NUR ---
PATIENT DISCHARGED FROM FACILITY. NO S/S OF DISTRESS. GATHERED ALL PERSONAL BELONGINGS. LEFT UNIT IN WHEELCHAIR AND WENT HOME VIA PRIVATE AUTO.
--- OUTSIDE RECORDS SUMMARY | 2019-12-02 14:46 | XMS REPORT | Clinical Summary ---
Author Author [facility] Organization [facility] Address Unknown Phone Unavailable Care Team Providers Care [employer] Dean Name Role Phone Prasad Gonzalez MD PCP [...] for up to 5 days .acute pain. 09/09/2019 acetaminophen-codeine Take 1-2 14 tablet 0 08/06 (TYLENOL WITH CODEINE #3) tablets by 0 300-30 mg per mouth nightly tabletIndications: acute as needed for pain moderate pain (do not drive) for up to 7 days .acute pain. Active Problems Problem Noted Date Nuclear sclerotic cataract of left eye 10/03/2018 Acute pancreatitis 10/07/2017 Encounters Care Team Description Date Type Specialty Mahesh Mcgee MD Leg swelling (Primary Dx); Medication side effect 09/02/2019 Emergency Emergency Medicine Mahesh Lazcano MD Arthritis of hip (Primary Dx); Pain of right hip joint 05/05/2019 Emergency Emergency Medicine after 11/25/2018 Social History Date Tobacco Use Types Packs/Day Years Used Never Smoker Smokeless Tobacco: Never Used Drinks/Week oz/Week Comments Alcohol Use No Sex Assigned at Date Recorded Not on file Last Filed Vital Signs Reading Time Taken Comments Vital Sign 144/67 09/02/2019 9:51 AM CDT Blood Pressure 91 09/02/2019 9:51 AM CDT Pulse 36.7 C (98 F) 09/02/2019 9:45 AM CDT Temperature 18 09/02/2019 9:45 AM CDT Respiratory Rate 98% 09/02/2019 9:51 AM CDT Oxygen Saturation - - Inhaled Oxygen Concentration 102 kg (225 lb) 09/02/2019 9:34 AM CDT Weight 167.6 cm (5' 6") 09/02/2019 9:34 AM CDT Height 36.32 09/02/2019 9:34 AM CDT Body Mass Index Plan of Treatment Health Maintenance Due Date Last Done Comments SHINGLES VACCINES (#1) 01/01/1990 65+ PNEUMOCOCCAL VACCINE 01/01/2005 (1 of 1 - PPSV23) INFLUENZA VACCINE 10/06/2019 Implants Device Identifier Shelf Expiration Date Model / Serial / L ot Implanted Type Area Manufactur er 05/05/2023 [id number] / [id number] / [id number] Lens Ascrysof Aspheric Uv Absorbing Intraocula Left: Eye JENN 19.0.Od 13mmx6.0mm - [id number] - r Lens [employer]ORATORI [id number] Implant [employer] Implanted: Qty: 1 on 10/03/2018 by Elpidio Serna MD at [facility] Procedures Comments Procedure Name Priority Date/Time Associated Diag nosis US DUPLEX VENOUS LOWER STAT 09/02/2019 EXTREMITY BILATERAL 10:58 AM CDT ESTIMATED GFR STAT 09/02/2019 10:03 AM CDT B NATRIURETIC PEPTIDE STAT 09/02/2019 10:03 AM CDT COMPREHENSIVE METABOLIC STAT 09/02/2019 PANEL 10:03 AM CDT PARTIAL THROMBOPLASTIN STAT 09/02/2019 TIME (PTT) 10:03 AM CDT PROTHROMBIN TIME WITH INR STAT 09/02/2019 10:03 AM CDT HC COMPLETE BLD COUNT STAT 09/02/2019 W/AUTO DIFF 10:03 AM CDT XR HIP 2-3 VIEWS RIGHT STAT 05/05/2019 6:14 AM FARM EQUIPMENT MECHANIC after 11/25/2018 Results * Us duplex venous lower extremity (09/02/2019 10:58 AM CDT) Specimen Narrative Performed At EXAMINATION: US DUPLEX VENOUS LOWER EXTREMITY BILAT ERAL [facility] CLINICAL HISTORY: Muna leg swelling r o dvt recent hip sx on the right side COMPARISON: None. TECHNIQUE: Grayscale, color Doppler, and spectral waveform analysis of the bilateral lower extremity deep venous s ystems was performed. The bilateral common femoral, superficial femoral, pr oximal deep femoral, greater saphenous, and popliteal veins were evaluated. The calf vessels were also e valuated. FINDINGS: The bilateral common femoral, superfici al femoral, and popliteal veins are compressible. They demonstrate normal v enous waveforms and response to augmentation. There is flow in the visu alized calf veins. There is no evidence of a popliteal or Da Silva's cyst. IMPRESSION: There is no evidence of deep venous thr ombus in either the right or left lower extremity. [id number] Procedure Note Interface, Radiology Results Incoming - 09/02/2019 11:06 AM CDT EXAMINATION: US DUPLEX VENOUS LOWER EXTREMITY BILATERAL CLINICAL HISTORY: Muna leg swelling r o dvt recent hip sx on the right side COMPARISON: None. TECHNIQUE: Grayscale, color Doppler, and spectral waveform analysis of the bilateral lower extremity deep venous systems was performed. The bilateral common femoral, superficial femoral, proximal deep femoral, greater saphenous, and popliteal veins were evaluated. The calf vessels were also evaluated. FINDINGS: The bilateral common femoral, superficial femoral, and popliteal veins are compressible. They demonstrate normal venous waveforms and response to augmentation. There is flow in the visualized calf veins. There is no evidence of a popliteal or Da Silva's cyst. IMPRESSION: There is no evidence of deep venous thrombus in either the right or left lower extremity. [id number] Performing Organization Address City/State/ZIP Code P simon Number [facility] [address] [place] [address] * Estimated GFR (09/02/2019 10:03 AM CDT) Pathologist [facility] Estimated GFR 52 (A) mL/min/1.73 m2 [facility] Comment: NONDENOMINATIONAL Catergory Units [facility] Interpretation [facility] G1 >=90 Normal or high G2 60-89 Mildly decreased G3a 45-59 Mildly to moderately decreased G3b 30-44 Moderately to severely decreased G4 15-29 Severely decreased G5 <15 Kidney failure The eGFR was calculated using the Chronic Kidney Disease Epidemiology Collaboration (CKD-EPI) equation. Interpretation is based on recommendations of the National Kidney Foundation-Kidney Disease Outcomes Quality Initiative (NKF-KDOQI) published in 2014. Specimen Performing Organization Address City/State/ZIP Code P simon Number [address] [place] [address] PATH[address] * Partial thromboplastin time, activated (09/02/2019 10:03 AM CDT) [facility] PTT 28.5 23.0 - 36.0 sec [facility] Comment: NONDENOMINATIONAL PTT therapeutic range for [facility] unfractionated heparin is HOSPITAL 61.0-112.0 seconds which corresponds to Anti-Xa 0.3-0.7 U/ml. Specimen Blood Performing Organization Address City/State/ZIP Code P simon Number [address] [place] [address] PATHOLOGY [address] * Prothrombin time with INR (09/02/2019 10:03 AM CDT) [facility] Prothrombin 13.9 11.5 - 14.5 sec [facility] time [facility] INR 1.07 [facility] Comment: NONDENOMINATIONAL For patients on anticoagulant [facility] therapy, reference ranges HOSPITAL below: Indication: INR Value Treatment of Venous Thrombosis, 2.0-3.0 pulmonary emboli, or prophylaxis of a venous thrombosis, or systemic emboli. High dose, high risk patients 3.0-4.5 with mechanical valves. NOTE: INR values over 3.0 are sometimes associated with gastrointestinal hemorrhage, especially values over 4.0. Specimen Blood Performing Organization Address City/State/ZIP Code P simon Number [facility] [address] [place] [address] PATHOLOGY AND GENOMIC MEDICINE [facility] [address] * CBC with platelet and differential (09/02/2019 10:03 AM CDT) WBC 10.1 4.2 - 11.0 k/uL [facility] RBC 3.93 (L) 4.04 - 5.86 m/uL [facility] HGB 12.6 (L) 13.0 - 17.3 g/dL [facility] HCT 38.0 34.0 - 45.0 % [facility] MCV 96.7 80.0 - 98.0 fL [facility] MCH 32.1 27.0 - 34.0 pg [facility] MCHC 33.2 31.5 - 36.5 g/dL [facility] RDW - SD 43.6 37.0 - 51.0 fL [facility] MPV 10.2 7.4 - 10.4 fL [facility] Platelet count 239 150 - 400 k/uL [facility] Nucleated RBC 0.00 /100 WBC [facility] Neutrophils 64.8 36.0 - 66.0 % [facility] Lymphocytes 19.1 (L) 24.0 - 44.0 % [facility] Monocytes 10.4 (H) 0.0 - 6.0 % [facility] Eosinophils 3.9 0.0 - 6.0 % [facility] Basophils 1.4 (H) 0.0 - 1.2 % [facility] Immature 0.4 0.0 - 1.0 % [facility] granulocytes [facility] Specimen Blood Performing Organization Address City/State/ZIP Code P simon Number [facility] [address] [place] [address] PATHOLOGY AND GENOMIC MEDICINE [facility] [address] [place] [address] * B natriuretic peptide (09/02/2019 10:03 AM CDT) BNP 47 0 - 100 pg/mL [facility] Specimen Blood Performing Organization Address City/State/[facility] Code P simon Number [facility] [address] [place] [address] PATHOLOGY AND GENOMIC MEDICINE [address] * Comprehensive metabolic panel (09/02/2019 10:03 AM CDT) Pathologist [facility] Sodium 140 135 - 150 mEq/L [facility] Potassium 4.2 3.5 - 5.0 mEq/L [facility] Chloride 103 98 - 112 mEq/L [facility] CO2 28 24 - 31 mmol/L [facility] Anion gap 9@ANIO 7 - 15 mEq/L [facility] BUN 24 (H) 7 - 18 mg/dL [facility] Creatinine 1.30 (H) 0.70 - 1.20 mg/dL [facility] Glucose 146 (H) 65 - 100 mg/dL [facility] Calcium 9.2 8.8 - 10.2 mg/dL [facility] Protein 6.2 (L) 6.3 - 8.3 g/dL [facility] Albumin 3.3 (L) 3.5 - 5.0 g/dL [facility] A/G ratio 1.1 0.7 - 3.8 [facility] Alkaline 83 0 - 129 U/L [facility] phosphatase [facility] AST 19 10 - 50 U/L [facility] ALT 11 5 - 50 U/L [facility] Total bilirubin 0.3 0.2 - 1.2 mg/dL [facility] Specimen Blood Performing Organization Address City/State/ZIP Code P simon Number [facility] [address] [place] [address] PATHOLOGY AND GENOMIC MEDICINE [facility] [address] [place] [address] HOSPITAL * XR Hip 2-3 View Right (05/05/2019 6:14 AM FARM EQUIPMENT MECHANIC) Specimen Narrative Performed At EXAMINATION: XR HIP 2-3 VIEWS RIGHT [facility] CLINICAL HISTORY: hip pain COMPARISON: None. FINDINGS: Mineralization is within normal limits. Hip joint spaces are narrowed bilaterally, with near [id number] con tact, osteophytosis and sclerosis of the acetabular articular surfaces. There is mild remodeling of both femoral heads and acetabula, more so on the left. Fracture, subluxation and per iosteal reaction are not seen. IMPRESSION: Bilateral degenerative changes, greater on the left. [id number] Procedure Note Hm Interface, Radiology Results Incoming - 05/05/2019 6:35 AM FARM EQUIPMENT MECHANIC EXAMINATION: XR HIP 2-3 VIEWS RIGHT CLINICAL HISTORY: hip pain COMPARISON: None. FINDINGS: Mineralization is within normal limits. Hip joint spaces are narrowed bilaterally, with near [id number] contact, osteophytosis and sclerosis of the acetabular articular surfaces. There is mild remodeling of both femoral heads and acetabula, more so on the left. Fracture, subluxation and periosteal reaction are not seen. IMPRESSION: Bilateral degenerative changes, greater on the left. [id number] Performing Organization Address City/[facility]/ZIP Code P simon Number [facility] [address] [place] [address] after 11/25/2018 Insurance Type Payer Benefit Subscriber ID Effective Phone Address Plan / Dates Group HMO TEXAN[employer] TEXANPLUS [id number] 2017-P [employer] roberto Advance Directives For more information, please contact: [phone] Patient Store Mgr Explanation Type Date Recorded Advance Directives, 05/16/2015 9:58 AM Living Will and Medical Power of Nurse Leader Advance Directives, 05/28/2015 2:14 PM Living Will and Medical Power of Nurse Leader Advance Directives, 09/08/2018 12:43 PM Living Will and Medical Power of Nurse Leader Advance Directives, 05/05/2019 6:37 AM Living Will and Medical Power of Nurse Leader Advance Directives, 09/02/2019 11:18 AM Living Will and Medical Power of Nurse Leader Date Inactivated Comments Code Status Date Activated 10/09/2017 3:07 PM Full Code 10/07/2017 11:58 PM Code Status decision reached by: Patient
--- OUTSIDE RECORDS SUMMARY | 2019-12-02 14:46 | XMS REPORT | Continuity of Care Document ---
Author Author [facility] t Organization [facility] Address 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 Cdc Review Covid19 [id number] [facility] TEXANPLUSTEXANPLUS [id number] 2017-PresentHMO [id number] 2017 00:00:00 Juan J Flores Problems Condition Name Condition Details Condition Category Status Onset Date Resolution Date Last Treatment Date Treating Clinician Comments Source Nuclear sclerotic cataract of left eye Nuclear sclerotic cat aract of left eye Disease Active 2018-10-03 00:00:00 Juan J Flores Acute pancreatitis Acute pancreatitis Disease Active 2017-10-07 00:00:0 0 Juan J Flores Problem Condition Active [facility] Allergies, Adverse Reactions, Alerts Allergy Name Allergy Type Status Severity Reaction(s) Onset Date Inacti ve Date Treating Clinician Comments Source Penicillin Allergy to substance Active 2019-07-17 00:00:00 [facility] Penicillins Propensity to adverse reactions to drug Active 2018-10-02 00:00:00 Juan J draper Social History Social Habit Start Date Stop Date Quantity Comments Source Sex Assigned At Jessica wilkins Rastafarian Tobacco use and exposure 2019-09-02 00:00:00 2019-09-02 00:00:00 James rowley used Juan J Flores Alcohol intake 2019-09-02 00:00:00 2019-09-02 00:00:00 Current non-drinker of alcohol (finding) Juan J Flores Smoking Status Start Date Stop Date Source Never smoker Juan J draper Medications Ordered Medication Name Filled Medication Name Start Date Stop Da te Current Medication? Ordering Clinician Indication Dosage Frequency Signature (SIG) Comments Components Source acetaminophen-codeine (TYLENOL WITH CODEINE #3) 300-30 mg pe r tablet 2019-09-02 00:00:00 2019-09-09 23:59:00 No acute pain 1{tbl} QD Take 1-2 tablets by mouth nightly as needed for moderate pain (do not drive) for up to 7 days .acute pain. Juan J Flores traMADoL (ULTRAM) 50 mg tablet 2019-05-05 00:00:00 5 23:59:00 No acute pain 50mg Q6H Take 1 tablet (50 mg total) by mouth every 6 (six) hours as needed for moderate pain for up to 5 days .acute pain. Juan J Flores montelukast (SINGULAIR) 10 mg tablet 2018-10-03 08:06:27 Ye s 10mg QD Take 10 mg by mouth nightly. Juan J spencer benazepril-hydrochlorothiazide (LOTENSIN HCT) 20-25 mg per t ablet 2018-10-03 08:06:27 Yes 1{tbl} QD Take 1 tablet by [...] 4 TIMES DAILY DIRECTED Juan J Flores Aspirin (Aspir 81) 81 Mg TABLET. Aspirin (Aspir 81) 81 Mg TABLET.DR Bennett [address] [facility] Baclofen Baclofen Yes 10 Every 12 Hours as needed for Mild Pain (1-3) Or Fever>100.8 [facility] Benazepril/Hydrochlorothiazide (Benazepril-Hctz 20-25 Mg Tab) 1 Each TABLET Benazepril/Hydrochlorothiazide (Benazepril-Hctz 20-25 Mg Tab) 1 Each TABLET Yes [address] [facility] Diclofenac Sodium (Voltaren) 100 Gm GEL..GRAM. Diclofe nac Sodium (Voltaren) 100 Gm GEL..GRAM. Yes 1 Daily [facility] Naproxen (Naprosyn) 500 Mg TABLET Naproxen (Naprosyn) 500 Mg TABLET Yes Every 12 Hours as needed for Mild Pain (1-3) Or Fever> 100.8 [facility] Benazepril/Hydrochlorothiazide (Benazepril-Hctz 20-12. 5 Mg Tab) 1 Each TABLET Benazepril/Hydrochlorothiazide (Benazepril-Hctz 20-12.5 Mg Tab) 1 Each TABLET 2019-11-21 00:00:[address] [facility] Biofenac Cream Biofenac Cream 2019-11-21 00:00:[address] [facility] Vital Signs Vital Name Observation Time Observation Value Comments Source Body Temperature 2019-11-27 07:57:00 99.0 [degF] [facility] Weight 2019-11-26 15:53:00 232 [lb_av] [facility] BMI (Body Mass Index) 2019-11-26 15:53:00 37.4 kg/m2 [facility] Systolic blood pressure 2019-09-02 09:51:00 144 mm[Hg] Juan J Flores Diastolic blood pressure 2019-09-02 09:51:00 67 mm[Hg] Juan J Flores Heart rate 2019-09-02 09:51:00 91 /min Juan J Flores Oxygen saturation in Arterial blood by Pulse oximetry 09-01 09:51:00 98 /min Arita Rastafarian Body temperature 2019-09-02 09:45:00 36.67 Johana Claire flood Rastafarian Respiratory rate 2019-09-02 09:45:00 18 /min Claire ton Rastafarian Body height 2019-09-02 09:34:00 167.6 cm Juan J Flores Body weight 2019-09-02 09:34:00 102.059 kg Juan J Flores BMI 2019-09-02 09:34:00 36.32 kg/m2 [place] [facility]ast[facility] Body Temperature 2019-07-24 12:00:00 97.3 [degF] [facility] Weight 2019-07-24 01:00:00 233 [lb_av] [facility] BMI (Body Mass Index) 2019-07-24 01:00:00 37.6 kg/m2 [facility] Procedures Procedure Date / Time Performed Performing Clinician [facility] e US DUPLEX VENOUS LOWER EXTREMITY BILATERAL 2019-09-02 10:58:09 C Blaine stiles HC COMPLETE BLD COUNT W/AUTO DIFF 2019-09-02 10:03:00 Bernard Rosales PROTHROMBIN TIME WITH INR 2019-09-02 10:03:00 Blaine Rosales PARTIAL THROMBOPLASTIN TIME (PTT) 2019-09-02 10:03:00 Bernard Rosales COMPREHENSIVE METABOLIC PANEL 2019-09-02 10:03:00 Ramon Rosales B NATRIURETIC PEPTIDE 2019-09-02 10:03:00 Blaine Rosales ESTIMATED GFR 2019-09-02 10:03:00 Blaine Rosales Meth odist TOTAL HIP ARTHROPLASTY 2019-07-23 00:00:00 [facility] X-ray of chest, two views 2019-07-19 00:00:00 CASANDRA Escobar [facility] XR HIP 2-3 VIEWS RIGHT 2019-05-05 06:14:41 Vinny Pierson Plan of Care Planned Activity Planned Date Details Comments Source Future Scheduled Test 2019-10-06 00:00:00 INFLUENZA VACCINE [code = INFLUENZA VACCINE] [facility] Future Scheduled Test 2005-01-01 00:00:00 65+ PNEUMOCOCCAL V ACCINE (1 of 1 - PPSV23) [code = 65+ PNEUMOCOCCAL VACCINE (1 of 1 - PPSV23)] [facility] Future Scheduled Test 1990-01-01 00:00:00 SHINGLES VACCINES (#1) [code = SHINGLES VACCINES (#1)] [facility] Instructions Post Operative Pain [facility] Encounters Start Date/Time End Date/Time Encounter Type Admission Type [facility] Care Department Encounter ID Source 2019-11-26 11:37:00 2019-11-27 11:17:00 Discharged Inpatient (obs) 3 RIVERABERE [facility] [id number] [facility] 2019-09-02 00:00:00 2019-09-02 00:00:00 Emergency JACINTA MCGEE [place] [id number] [facility] 2019-07-23 12:10:00 2019-07-24 13:28:00 Discharged Inpatient (obs) [address] [facility] [id number] [facility] 2019-05-05 00:00:00 2019-05-05 00:00:00 Emergency JACINTA LAZCANO [facility] [id number] [facility] Results Test Description Test Time Test Comments Results Result Comments Source Blood hemoglobin measurement (moles/volume) 2019-11-27 04:45 :00 Test Item Hemoglobin (test code = 18389-8) 12.2 14.0-18.0 [facility] hematocrit (volume fraction)2019-11-27 04:45:00* Test Item Value Reference Range Interpretation Comments Hematocrit (test code = 4544-3) 35.7 38.2-49.6 [facility] AP 1-2 [id number] 12:01:00 [place] [address] Patient Name: JEREMIAH GRAVES MR #: [id number] : 1940 Age/Sex: 79/M Req #: [id number] [facility] Physician: Ordered by: BERE STAFFORD MD Report #: [id number] Location: OR Room/Bed: Procedure: [id number] DX/PELVIS AP 1-2 VIEWS Exam Date: 11/26/19 Exam Time: 1130 REPORT STATUS: Signed Radiograph of the pe lvis - HISTORY: Pain. Postop left hip surgery COMPARISON: None avail able. FINDINGS: Bones: No acute displaced fracture. Osseous al ignment is within normal limits. Joints: Patient status post left and rig ht hip replacement with associated postsurgical change. The surgical hardware is intact without evidence of failure or loosening. Soft tissues: The s oft tissues appear unremarkable. IMPRESSION: Patient status post left and right hip replacement with associated postsurgical change. The surgical h ardware is intact without evidence of failure or loosening. Signed by: Dr Yoli Bowers M.D. on 11/26/2019 12:02 PM Dictated By: SMOOTH Baum D 120 Transcribed B y: LEORA on 11/26/191201 COPY TO: BERE STAFFORD MD Fluoroscopic procedure less than one hour [id number] 11:38:00* Test Item Value Reference Range Interpretation Comments Coronavirus (PCR) (test code = Coronavirus (PCR)) NOT DETECTED NOTD ETECTED SARS-CoV-2 PCRHologic Aptima SARS-CoV-2 assay is a nucleic amplification test in tended for the qualitative detection of RNA from SARS-CoV-2 from nasopharyngeal (MULTI CRAFT MAINTENANCE TECHNICIAN) specimens. It is used under Emergency Use Authorization (EUA) by FDA.A posi tive result is indicative of the presence of SARS-CoV-2 RNA. Clinical correlatio n with patient history and other diagnostic information is necessary to determin e patient infection status.A negative (Not Detected) result does not preclude SA RS-CoV-2 infection. Clinical Correlation with patient history and other diagnost ic information should be used in patient management decisions.Invalid: Unable to generate a valid result on this specimen. Please submit a new specimen for repr at testing oc clinically indicated.Tesing performed by:[facility] Laboratory Services[address] [place] [address] [id number], Tristan morales MD, PhDSt. [facility] Health [facility] HospitalBlelbow lake medical center leukocytes automated count (number/volume)2019-11-22 10:55:00* Test Item Value Reference Range Interpretation Comments White Blood Count (test code = 6690-2) 11.85 4.8-10.8 [facility] erythrocytes automated count (number/volume)2019-11-22 10:55:00* Test Item Value Reference Range Interpretation Comments Red Blood Count (test code = 789-8) 4.48 4.3-5.7 [facility] HospitalAutomated erythrocyte mean corpuscular ubgwsb3461-84-15 10:55:00* Test Item Value Reference Range Interpretation Comments Mean Corpuscular Volume (test code = 787-2) 93.5 81-99 [facility] HospitalAutomated erythrocyte mean corpuscular hemoglobin (mass per erythrocyte)2019-11-22 10:55:00* Test Item Value Reference Range Interpretation Comments Mean Corpuscular Hemoglobin (test code = 785-6) 31.7 28-32 [facility] HospitalAutomated erythrocyte mean corpuscular hemoglobin concentration measurement (mass/volume)2019-11-22 10:55:00* Test Item Value Reference Range Interpretation Comments Mean Corpuscular Hemoglobin Concent (test code = 786-4) 33.9 31-35 [facility] HospitalRDW XcpTy-Zyc1398-89-17 10:55:00* Test Item Value Reference Range Interpretation Comments Red Cell Distribution Width (test code = 48035-7) 12.2 11.7 -14.4 [facility] HospitalAutomated blood platelet count (count/volume)2019-11-22 10:55:00* Test Item Value Reference Range Interpretation Comments Platelet Count (test code = 777-3) 265 140-360 [facility] HospitalAutomated blood segmented neutrophil count as percentage of total wfhxvttnua7661-80-15 10:55:00* Test Item Value Reference Range Interpretation Comments Neutrophils (%) (Auto) (test code = 20783-0) 65.7 38.7-80.0 [facility] HospitalAutomated blood lymphocyte count as percentage ot total vkotufigyz0468-80-92 10:55:00* Test Item Value Reference Range Interpretation Comments Lymphocytes (%) (Auto) (test code = 736-9) 21.7 18.0-39.1 [facility] HospitalAutomated blood monocyte count as percentage of total rvpojyfezi2091-32-15 10:55:00* Test Item Value Reference Range Interpretation Comments Monocytes (%) (Auto) (test code = 5905-5) 9.6 4.4-11.3 [facility] HospitalAutomated blood eosinophil count as percentage of total uzdhxifurt5768-16-77 10:55:00* Test Item Value Reference Range Interpretation Comments Eosinophils (%) (Auto) (test code = 713-8) 1.5 0.0-6.0 [facility] HospitalAutomated blood basophil count as percentage of total pfodddpnlc7201-85-61 10:55:00* Test Item Value Reference Range Interpretation Comments Basophils (%) (Auto) (test code = 706-2) 1.1 0.0-1.0 [facility] HospitalFluoroscopic procedure less than one hour haovhpkt2258-73-07 10:55:00* Test Item Value Reference Range Interpretation Comments IM GRANULOCYTES % (test code = IM GRANULOCYTES %) 0.4 0.0- 1.0 [facility] HospitalAutom[facility] blood neutrophil count 2019-11-22 10:55:00* Test Item Value Reference Range Interpretation Comments Neutrophils # (Auto) (test code = 751-8) 7.8 2.1-6.9 [facility] HospitalBlood lymphocytes count (number/volume) 2019-11-22 10:55:00* Test Item Value Reference Range Interpretation Comments Lymphocytes # (Auto) (test code = 68276-6) 2.6 1.0-3.2 [facility] HospitalBlood monocytes automated count (number/volume)2019-11-22 10:55:00* Test Item Value Reference Range Interpretation Comments Monocytes # (Auto) (test code = 742-7) 1.1 0.2-0.8 [facility] HospitalAutomated blood eosinophil count 2019-11-22 10:55:00* Test Item Value Reference Range Interpretation Comments Eosinophils # (Auto) (test code = 711-2) 0.2 0.0-0.4 [facility] HospitalAutnovant health rehabilitation hospitaled blood basophil count (count/volume)2019-11-22 10:55:00* Test Item Value Reference Range Interpretation Comments Basophils # (Auto) (test code = 704-7) 0.1 0.0-0.1 [facility] HospitalFluoroscopic procedure less than one hour icxsfuhf0719-93-11 10:55:00* Test Item Value Reference Range Interpretation Comments Absolute Immature Granulocyte (auto (ayse t code = Absolute Immature Granulocyte (auto) 0.05 0-0.1 [facility] or plasma sodium measurement (moles/volume)2019-11-22 10:55:00* Test Item Value Reference Range Interpretation Comments Sodium Level (test code = 2951-2) 144 136-145 [facility] Texaserum or plasma potassium measurement (moles/volume)2019-11-22 10:55:00* Test Item Value Reference Range Interpretation Comments Potassium Level (test code = 2823-3) 3.9 3.5-5.1 [facility] Texaserum or plasma chloride measurement (moles/volume)2019-11-22 10:55:00* Test Item Value Reference Range Interpretation Comments Chloride Level (test code = 2075-0) 107 98-107 [facility] Texaserum or plasma carbon dioxide, total measurement (moles/volume)2019-11-22 10:55:00* Test Item Value Reference Range Interpretation Comments Carbon Dioxide Level (test code = 2028-9) 25 22-29 [facility] Texaserum or plasma anion asl4179-32-61 10:55:00* Test Item Value Reference Range Interpretation Comments Anion Gap (test code = 11594-3) 15.9 8-16 [facility] Texaserum or plasma urea nitrogen measurement (mass/volume)2019-11-22 10:55:00* Test Item Value Reference Range Interpretation Comments Blood Urea Nitrogen (test code = 3094-0) 22 7-26 [facility] Texaserum or plasma creatinine measurement (mass/volume)2019-11-22 10:55:00* Test Item Value Reference Range Interpretation Comments Creatinine (test code = 2160-0) 1.22 0.72-1.25 [facility] Texaserum or plasma urea nitrogen/creatinine mass uccnu7069-83-96 10:55:00* Test Item Value Reference Range Interpretation Comments BUN/Creatinine Ratio (test code = 3097-3) 18 6-25 [facility] HospitalEstimated glomerular filtration rate (GFR) khkqssescoerw7782-27-47 10:55:00* Test Item Value Reference Range Interpretation Comments Estimat Glomerular Filtration Rate (test code = 513619193) 57 >60 Ranges were taken from the National Kidney Disease Education Program and the Ev [facility] Kidney Foundation literature.Reference ranges:60 or greater: Swpnsg35-52 ( for 3 consecutive months): Chronic kidney disease 15 or less: Kidney failureSt. Joseph Health College Station HospitalGlucose ykiirkhmppi2564-81-49 10:55:00* Test Item Value Reference Range Interpretation Comments Glucose Level (test code = NGB2405) 116 74-118 [facility] Texaserum or plasma calcium measurement (mass/volume)2019-11-22 10:55:00* Test Item Value Reference Range Interpretation Comments Calcium Level (test code = 27040-1) 9.3 8.4-10.2 [facility] HospitalUs duplex venous lower extremity 2019-09-02 11:03:08Hm Interface, Radiology Results 09/02/2019 11:06 AM CDTEXAMINATION: US DUPLEX VENOUS LOWER EXTREMITY BILATERALCLINICAL HISTORY: Muna leg swelling r o dvt recent hip sx on the right sideCOMPARISON: None.TECHNIQUE: Grayscale, color Doppler, and spectral waveform analysis of the bilateral lower extremity deep venous systems was performed. The bilateral common femoral, superficial femoral, proximal deep femoral, greater saphenous, and popliteal veins were evaluated. The calf vessels were also evaluated.FINDINGS:The bilateral common femoral, superficial femoral, and popliteal veins are compressible. They demonstrate normal venous waveforms and response to augmentation. There is flow in the visualized calf veins.There is no evidence of a popliteal or Da Silva's cyst.IMPRESSION:There is no evidence of deep venous thrombus in either the right or left lower extremity.[facility]-WPHYAAWHSc[facility] natriuretic ocgkhnj9212-11-87 10:38:21* Test Item Value Reference Range Interpretation Comments BNP (test code = 10159-3) 47 pg/mL 0-100 [facility]Com[facility] metabolic vvnqd3855-03-28 10:31:32* Test Item Value Reference Range Interpretation Comments Sodium (test code = 2951-2) 140 135- 150 mEq/L Potassium (test code = 2823-3) 4.2 3.5- 5.0 mEq/L Chloride (test code = 2075-0) 103 98- 112 mEq/L CO2 (test code = 2027-9) 28 mmol/L 24-31 Anion gap (test code = 74869-0) 9@ANIO 7- 15 mEq/L BUN (test code = 3094-0) 24 mg/dL 7-18 H Creatinine (test code = 2160-0) 1.30 mg/dL 0.7-1.2 H Glucose (test code = 2345-7) 146 mg/dL 65-100 H Calcium (test code = 92377-5) 9.2 mg/dL 8.8-10.2 Protein (test code = 2885-2) 6.2 g/dL 6.3-8.3 L Albumin (test code = 1751-7) 3.3 g/dL 3.5-5 L A/G ratio (test code = 1759-0) 1.1 0.7-3.8 Alkaline phosphatase (test code = 6768-6) 83 U/L 0-129 AST (test code = 1920-8) 19 U/L 10-50 ALT (test code = 1742-6) 11 U/L 5-50 Total bilirubin (test code = 1975-2) 0.3 mg/dL 0.2-1.2 Lab Interpretation (test code = 53045-0) Abnormal Arita MethodistEstimated [id number] 10:31:30* Test Item Value Reference Range Interpretation Comments Estimated GFR (test code = 5488) 52 mL/min/1.73 m2 A Catergory Units InterpretationG1 >=90 Normal or highG2 60-89 Mildly aiyjnyxvjG4r 45-59 Mildly to moderately aonflxzdoU3t 30-44 Moderately to severely decreasedG4 15-29 Severely decreasedG5 <15 Kidney failureThe eGFR was calculated using the Chronic Kidney Disease Epidemiology Collaboration (CKD-EPI) equation. Interpretation is based on recommendations of the National Kidney Foundation-Kidney Disease Outcomes Quality Initiative (NKF-KDOQI) published in 2014. Lab Interpretation (test code = 45489-8) Abnormal [facility] MethodistPartial thromboplastin time, qhkyomsbk4686-99-10 10:26:40* Test Item Value Reference Range Interpretation Comments PTT (test code = 3173-2) 28.5 23.0- 36.0 sec P TT therapeutic range for unfractionated heparin is61.0-112.0 seconds which corresponds to Anti-Xa0.3-0.7 U/ml. Arita MethodistProthrombin time with MOW5363-28-90 10:25:46* Test Item Value Reference Range Interpretation Comments Prothrombin time (test code = 5902-2) 13.9 11.5- 14.5 sec INR (test code = 45729-5) 1.07 Fo r patients on anticoagulant therapy, reference ranges below:Indication: INR ValueTreatment of Venous Thrombosis, 2.0-3.0pulmonary emboli, or prophylaxisof a venous thrombosis, or systemic emboli.High dose, high risk patients 3.0-4.5with mechanical valves.NOTE: INR values over 3.0 are sometimes associated withgastrointestinal hemorrhage, especially values over 4.0. [facility]rita MethodistCBC with platelet and cqyymafoevoc6224-17-96 10:10:46* Test Item Value Reference Range Interpretation Comments WBC (test code = 08468-0) 10.1 4.2- 11.0 k/uL RBC (test code = 73749-6) 3.93 m/uL 4.04-5.86 L HGB (test code = 718-7) 12.6 g/dL 13-17.3 L HCT (test code = 4544-3) 38.0 % 34-45 MCV (test code = 787-2) 96.7 fL 80-98 MCH (test code = 785-6) 32.1 pg 27-34 MCHC (test code = 786-4) 33.2 g/dL 31.5-36.5 RDW - SD (test code = 12829-5) 43.6 fL 37-51 MPV (test code = 21606-5) 10.2 fL 7.4-10.4 Platelet count (test code = 86421-9) 239 150- 400 k/uL Nucleated RBC (test code = 22873-4) 0.00 /100 WBC Neutrophils (test code = 00648-2) 64.8 % 36-66 Lymphocytes (test code = 90359-4) 19.1 % 24-44 L Monocytes (test code = 56436-9) 10.4 % 0-6 H Eosinophils (test code = 25712-5) 3.9 % 0-6 Basophils (test code = 14039-9) 1.4 % 0-1.2 H Immature granulocytes (test code = 09577-3) 0.4 % 0-1 Lab Interpretation (test code = 55919-5) Abnormal Arita MethodistBlood hemoglobin measurement (moles/volume)2019-07-24 05:50:00 * Test Item Value Reference Range Interpretation Comments Hemoglobin (test code = 82754-6) 11.9 14.0-18.0 [facility] HospitalAutomated blood hematocrit (volume fraction)2019-07-24 05:50:00* Test Item Value Reference Range Interpretation Comments Hematocrit (test code = 4544-3) 35.0 38.2-49.6 [facility] HospitalFluoroscopic procedure less than one hour yoexrbhu9967-62-13 05:50:00* Test Item Value Reference Range Interpretation Comments Hemoglobin A1c Percent (test code = Hemoglobin A1c Percent) 6.1 4.0-7.0 [facility] HospitalFluoroscopic procedure less than one hour kpqzwekp3606-40-19 05:50:00* Test Item Value Reference Range Interpretation Comments Hemoglobin A1c Percent (test code = Hemoglobin A1c Percent) 6.1 4.0-7.0 [facility] HospitalPELVIS AP 1-2 [id number] 13:31:00 [facility] [address] [place] [address] Patient Name: JEREMIAH GRAVES MR #: [id number] : 1940 Age/Sex: 79/M Req #: [id number] Adm Physician: BERE STAFFORD MD Ordered by: BERE STAFFORD MD Report #: [id number] Location: MED/SURG [place] [facility] [place] [facility] [place] Procedure: [id number] DX/PELVIS AP 1-2 VIEWS Exam Date: 07/23/19 Exam Time: 1248 REPORT STATUS: Signed Pelvis, 1 view. History: Post op. 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 Overlying post-surgical air and skin korey are present. Remaining bones are unremarkable. 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 IMPRESSION: Status post right hip replacem ent in anatomic position. Left hip DJD noted. Signed by: Juan Santoyo on 1:32 PM Dictated By: JUAN SANTOYO MD 1332 Transcribed By: LEORA on 07/23/19 1332 COPY TO: BERE STAFFORD MD Serum or plasma sodium measurement (moles/volume)2019-07-20 07:50:00* Test Item Value Reference Range Interpretation Comments Sodium Level (test code = 2951-2) 141 136-145 [facility] or plasma potassium measurement (moles/volume)2019-07-20 07:50:00* Test Item Value Reference Range Interpretation Comments Potassium Level (test code = 2823-3) 4.0 3.5-5.1 [facility] Texas[facility] or plasma chloride measurement (moles/volume)2019-07-20 07:50:00* Test Item Value Reference Range Interpretation Comments Chloride Level (test code = 2075-0) 106 98-107 [facility] carbon dioxide, total measurement (moles/volume)2019-07-20 07:50:00* Test Item Value Reference Range Interpretation Comments Carbon Dioxide Level (test code = 2028-9) 24 22-29 [facility] plasma anion [id number] 07:50:00* Test Item Value Reference Range Interpretation Comments Anion Gap (test code = 83881-0) 15.0 8-16 [facility] plasma urea nitrogen measurement (mass/volume)2019-07-20 07:50:00* Test Item Value Reference Range Interpretation Comments Blood Urea Nitrogen (test code = 3094-0) 20 7-26 [facility] creatinine measurement (mass/volume)2019-07-20 07:50:00* Test Item Value Reference Range Interpretation Comments Creatinine (test code = 2160-0) 1.27 0.72-1.25 [facility] plasma urea nitrogen/creatinine mass [id number] 07:50:00* Test Item Value Reference Range Interpretation Comments BUN/Creatinine Ratio (test code = 3097-3) 16 6-25 [facility] HospitalEstimated glomerular filtration rate (GFR) ozlamsvqjewmd2148-62-75 07:50:00* Test Item Value Reference Range Interpretation Comments Estimat Glomerular Filtration Rate (test code = 634890554) 55 >60 Ranges were taken from the National Kidney Disease Education Program and the [facility] literature.Reference ranges:60 or greater: Leabdo46-08 ( for 3 consecutive months): Chronic kidney disease 15 or less: Kidney failureSt. Joseph Health [facility] HospitalGlucose mfxzrdgkwem5449-48-72 07:50:00* Test Item Value Reference Range Interpretation Comments Glucose Level (test code = PDJ7798) 207 74-118 [facility] calcium measurement (mass/volume)2019-07-20 07:50:00* Test Item Value Reference Range Interpretation Comments Calcium Level (test code = 28158-2) 9.3 8.4-10.2 [facility] HospitalCHEST 2 [id number] 11:11:00 [facility] [address] [place] [address] Patient Name: JEREMIAH GRAVES MR #: [id number] : 1940 Age/Sex: 79/M Req #: [id number] Adm Physician: BERE STAFFORD MD Ordered by: BERE STAFFORD MD Report #: [id number] Location: MED/SURG [place] [facility] [place] [facility] [place] Procedure: [id number] DX/CHEST 2 VIEWS Exam Date: 07/19/19 Exam Time: 1142 REPORT STATUS: Signed EXAMINATION: CHEST 2 VIEWS INDICATION: Pre-operative COMPARISON: None FINDINGS: LINES/TUBES:None LUNGS:The lungs are well-inflated. No focal consolidation or pulmonary edema. PLEURA:No pleural effusion or pneumothorax. ME DIASTINUM:The cardiomediastinal silhouette appears normal in size and shape. BONES/SOFT TISSUES:No acute osseous injury. ABDOMEN:No free air under the diaphragm. Status post cholecystectomy. IMPRESSION: No focal pneumon ia or pulmonary edema. Signed by: Mónica Ross MD on 07/19/2019 11:11 AM Dictated By: MÓNICA ROSS MD 1111 COPY TO: BERE STAFFORD MD Fluoroscopic procedure less than one hour [id number] 11:06:00 * Test Item Value Reference Range Interpretation Comments Coronavirus (PCR) (test code = Coronavirus (PCR)) NOT DETECTED NOTD ETECTED SARS-COV-2 (COVID19), HIGHRISK, RT-PCRNegative results do not preclude SARS-CoV- 2 infection and should not be used as the sole basis for patient management deci sions. Negative results must be combined with clinical observations, patient his tory, and epidemiological information. Optimum specimen types and timing for pea k viral levels during infections caused by SARS-CoV-2 have not been determined. Collection of multiple specimens ot types of specimens may be necessary to detec t virus. Improper specimen collection and handling, sequence variability under p rimers/probes, or organism present below the limit of detection may lead to fals e negative results. Positive and negative predictive values of testing are highl y dependent on prevalance. False negative test results are more likely when prev alence is high.The expected result is negative (not detected).The SARS-CoV-2 ayse t is intended for the qualitative detection of nucleic acid from SARS-CoV-2 in n asopharyngeal and oropharyngeal swab samples from patients who meet COVID-19 cli nical and or epidemiological criteria. For lower respiratory tract specimens, th e assay is submitted for authoriztion by FDA under an Emergency Use Authorizatio n (EUA). Testing methodology is real time RT-PCR. If received as separate collec tion devices, nasopharygeal and oropharyngeal specimens are combined for analysi s. Additional specimens may be split to a separate accession for analysi and rep orting as this test includes a single unit of service.Test results must be corre lated with clinical presentation and evaluated in the context of other laborator y and epidemiologic data. Test performance can be affected because the epidemiol ogy and clinical spectrum of infection caused by SARS-CoV-2 is not fully known. For example, the optimum types of specimens to collect and when during the cours e of infection these specimens are most likely to contain detectable viral RNA m ay not be known.This test has not been Food and Drug Administration (FDA) cleare d or approved and has been authorized by FDA under an Emergency Use Authorizatio n (EUA). The test is only authorized for the duration of the declaration that ci rcumstances exist justifying the authorization of emergency use of in vitro diag nostic tests for detection and/or diagnosis of SARS-CoV-2 under section 564(b) o f the Act, 21 U.S.C. section 360bbb-3(b)(1), unless the authorization is termina adiel or revoked sooner. [facility] are certified under the [facility] Laboratory Improvement Amendments of 1988 (CLIA), 42 U.S.C. section 263a , to perform high complexity tests.Testing performed by [facility] [id number] [phone] Director: José Braswell M.D.CLIA # [id number]. Joseph Health [facility] HospitalBlelbow lake medical center leukocytes automated count (number/volume)2019-07-19 10:42:00* Test Item Value Reference Range Interpretation Comments White Blood Count (test code = 6690-2) 11.60 4.8-10.8 [facility] HospitalBlelbow lake medical center erythrocytes automated count (number/volume)2019-07-19 10:42:00* Test Item Value Reference Range Interpretation Comments Red Blood Count (test code = 789-8) 4.25 4.3-5.7 [facility] HospitalAutomated erythrocyte mean corpuscular lvxcah1168-86-16 10:42:00* Test Item Value Reference Range Interpretation Comments Mean Corpuscular Volume (test code = 787-2) 96.9 81-99 [facility] HospitalAutomated erythrocyte mean corpuscular hemoglobin (mass per erythrocyte)2019-07-19 10:42:00* Test Item Value Reference Range Interpretation Comments Mean Corpuscular Hemoglobin (test code = 785-6) 32.5 28-32 [facility] HospitalAutomated erythrocyte mean corpuscular hemoglobin concentration measurement (mass/volume)2019-07-19 10:42:00* Test Item Value Reference Range Interpretation Comments Mean Corpuscular Hemoglobin Concent (test code = 786-4) 33.5 31-35 [facility] HospitalRDW MpcVf-Kvr4352-57-14 10:42:00* Test Item Value Reference Range Interpretation Comments Red Cell Distribution Width (test code = 90679-9) 12.1 11.7 -14.4 [facility] HospitalAutomated blood platelet count (count/volume)2019-07-19 10:42:00* Test Item Value Reference Range Interpretation Comments Platelet Count (test code = 777-3) 256 140-360 [facility] HospitalAutomated blood segmented neutrophil count as percentage of total nkaaennntr4731-12-97 10:42:00* Test Item Value Reference Range Interpretation Comments Neutrophils (%) (Auto) (test code = 11792-5) 70.4 38.7-80.0 [facility] HospitalAutomated blood lymphocyte count as percentage ot total hxicmhvgib2683-97-27 10:42:00* Test Item Value Reference Range Interpretation Comments Lymphocytes (%) (Auto) (test code = 736-9) 17.6 18.0-39.1 [facility] HospitalAutomated blood monocyte count as percentage of total pwwfkhanfs6070-82-92 10:42:00* Test Item Value Reference Range Interpretation Comments Monocytes (%) (Auto) (test code = 5905-5) 9.7 4.4-11.3 [facility] HospitalAutomated blood eosinophil count as percentage of total jwfjznzjsy6663-57-93 10:42:00* Test Item Value Reference Range Interpretation Comments Eosinophils (%) (Auto) (test code = 713-8) 1.0 0.0-6.0 [facility] HospitalAutomated blood basophil count as percentage of total rvqbhboikx0073-90-14 10:42:00* Test Item Value Reference Range Interpretation Comments Basophils (%) (Auto) (test code = 706-2) 0.9 0.0-1.0 [facility] HospitalFluoroscopic procedure less than one hour ctsbyuqd7745-24-39 10:42:00* Test Item Value Reference Range Interpretation Comments IM GRANULOCYTES % (test code = IM GRANULOCYTES %) 0.4 0.0- 1.0 [facility] HospitalAutomated blood neutrophil count 2019-07-19 10:42:00* Test Item Value Reference Range Interpretation Comments Neutrophils # (Auto) (test code = 751-8) 8.2 2.1-6.9 [facility] HospitalBlood lymphocytes count (number/volume) 2019-07-19 10:42:00* Test Item Value Reference Range Interpretation Comments Lymphocytes # (Auto) (test code = 07013-3) 2.0 1.0-3.2 [facility] HospitalBlood monocytes automated count (number/volume)2019-07-19 10:42:00* Test Item Value Reference Range Interpretation Comments Monocytes # (Auto) (test code = 742-7) 1.1 0.2-0.8 [facility] HospitalAutomated blood eosinophil count 2019-07-19 10:42:00* Test Item Value Reference Range Interpretation Comments Eosinophils # (Auto) (test code = 711-2) 0.1 0.0-0.4 [facility] HospitalAutomated blood basophil count (count/volume)2019-07-19 10:42:00* Test Item Value Reference Range Interpretation Comments Basophils # (Auto) (test code = 704-7) 0.1 0.0-0.1 [facility] HospitalFluoroscopic procedure less than one hour kfzoephn1913-95-16 10:42:00* Test Item Value Reference Range Interpretation Comments Absolute Immature Granulocyte (auto (ayse t code = Absolute Immature Granulocyte (auto) 0.05 0-0.1 [facility] HospitalXR Hip 2-3 View Nngte0713-37-57 06:32:38 Interface, Radiology Results 05/05/2019 6:35 AM CSTEXAMINATION: XR HIP 2-3 VIEWS RIGHTCLINICAL HISTORY: hip painCOMPARISON: None.FINDINGS:[facility] alization is within normal limits. Hip joint spaces are narrowed bilaterally, wi th near glad-qk-xzbk contact, osteophytosis and sclerosis of the acetabular sheryl cular surfaces. There is mild remodeling of both femoral heads and acetabula, mo re so on the left. Fracture, subluxation and periosteal reaction are not seen.IM PRESSION:Bilateral degenerative changes, greater on the left.[id number] Juan J Flores
== END 2019-11-27 11:17 | disposition home or self-care (01) ==
LOC: OR 07:14 → PACU V 11:37 → MED/SURG 15:21
PROVIDERS: ADMIT Specialist; ATTEND Specialist
DX: M16.12 Unilateral primary osteoarthritis, left hip (principal); I10 Essential (primary) hypertension; Z96.641 Presence of right artificial hip joint; Z90.49 Acquired absence of other specified parts of digestive tract; Z79.82 Long term (current) use of aspirin; Z88.0 Allergy status to penicillin; Z11.59 Encounter for screening for other viral diseases; Z01.810 Encounter for preprocedural cardiovascular examination; Z01.812 Encounter for preprocedural laboratory examination
CPT/HCPCS: 27130; 36415 ×3; 72170; 80048; 82948 ×2; 85014; 85018; 85025; 86850; 86900; 86920; 93005; 97116 ×2; 97161; 97530 ×2; C1713 ×2; C1734; C1776 ×2; G0378 ×2; J0171; J0690; J1100; J1885 ×2; J2001; J2250; J2370; J2405; J2704; J2795; J3010; J3370 ×3; J7040; J7050; U0002; J1200